=== PATIENT | female | born 1985 | race Caucasian/White ===

== ENCOUNTER 2022-09-01 01:11 | Inpatient (IN) ==
[2022-09-01] MEDS ORDERED: OXYTOCIN 30 UNITS/500 ML BAG IV PRN ×2 (01:27→03:33)
[2022-09-01] MEDS ORDERED: LACTATED RINGER'S 1,000 ML IV PRN (01:27)
[2022-09-01] MEDS ORDERED: LIDOCAINE 1% LOCAL 20 ML VIAL INFIL PRN (01:27)
[2022-09-01] MEDS ORDERED: Patient's HEIGHT &/or WEIGHT Needed SCH (01:30)
[2022-09-01] MEDS ORDERED: PENICILLIN G POTASSIUM 6 MU in DEXTROSE 5% 250 ML IV STA (01:41)
[2022-09-01] MEDS ORDERED: PENICILLIN G POTASSIUM 3 MU in DEXTROSE 5% 100 ML IV PRN (01:42)
--- NOTE | 2022-09-01 01:57 | History & Physical Report ---
Date of Service September 01, 2022 Assessment & Plan (1) : Plan: Admit in labor requesting epidural for pain History of Present Illness Chief Complaint: onset of labor Primary Care Provider: NO PCP 37 F P0000 at 39.5 weeks presents to L&D in active labor. GBS is negative. Covid is negative. 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 Beliefs That Will Affect Care: None marital status: Current Living Situation: Spouse Other Information That Helps Us Care for You: No Feels Safe at Home: Yes Safety Concerns: Feels Safe At This Time OB History primip 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 Review of Systems All systems reviewed & are unremarkable except as noted in HPI & below Physical Exam Constitutional: WD/WN, vitals as above Eyes: PERRL, conjunctivae normal, anicteric sclerae Respiratory: normal respiratory effort, lungs clear to auscultation Cardiovascular: RRR, no murmur, no edema Gastrointestinal (Abdomen): Inspection/Auscultation: abdomen normal to inspection Musculoskeletal: Extremities: extremities normal to inspection Skin: no rashes, warm and dry Neurologic: patellar DTR's 2+ bilat, sensation intact Psychiatric: A+Ox3, euthymic affect Genitourinary: Manual OB Exam: + cervical dilation 7 cm, + cervical effacement 100% and + station 0 OB Exam Monitor Tracing: + external FHT monitor used, + external uterine monitor used, + category I and + normal FHT variability Results & Data Vital Signs (Past 12 Hours) Vital Signs Pulse Resp BP 09/01/22 01:35 18 09/01/22 01:23 81 108/71 Laboratory Results Laboratory Results - last 24 hr 09/01/22 01:30 SARS-CoV-2, RNA, NAAT NEGATIVE Monitoring External Monitor Cat 1
[2022-09-01] MEDS ORDERED: ePHEDrine sulfate 50 MG/ML AMP ONE (01:58)
[2022-09-01] MEDS ORDERED: fentaNYL 2MCG/ML ROPIVACAINE 1.25MG/ML 100 ML BAG EPI ONE (01:59)
[2022-09-01] MEDS ORDERED: BUPIVACAINE 0.25% PF 30 ML VIAL ONE (01:59)
[2022-09-01] MEDS ORDERED: SODIUM CHLORIDE 0.9% PF INJ 10 ML VIAL ONE (01:59)
[2022-09-01] MEDS ORDERED: fentaNYL citrate PF 100 MCG/2 ML VIAL ONE (01:59)
[2022-09-01] MEDS ORDERED: LIDOCAINE 2%/EPINEPHRINE 1:200,000 20 ML PF ONE (01:59)
[2022-09-01 02:02] LABS: Hematocrit (blood only) 36.8 % (37.0-47.0); Mean Corpuscular Hemoglobin 33.3 pg (25.0-34.0); Mean Corpuscular Hgb Conc 35.3 g/dL (32.0-36.0); Mean Corpuscular Volume 94.4 fL (80.0-100.0); Mean Platelet Volume 10.7 fL (9.4-12.4); Platelet Count 259 K/uL (130-400); RDW Standard Deviation 44.6 fL (36.4-46.3); White Blood Count 12.72 K/ul (4.8-10.8)
--- NOTE | 2022-09-01 03:29 | Delivery Summary ---
Vaginal Delivery Summary Date of Service September 01, 2022 Vaginal Delivery Summary Delivery Note live male SHREE over intact perineum with delayed cord clamping and Apgars 8/9 weight pending. Cord blood obtained followed by spontaneous delivery of intact placenta with 3VC. Second degree tear noted. 1% Lidocaine infiltrated locally. Repair done with 3/0 Vicryl suture. EBL 300 ml. Final sponge, needle and instrument count are correct. Mom and baby stable.
[2022-09-01] MEDS ORDERED: DIPHTHERIA/TETANUS/PERTUSSIS Vaccine (Tdap, Age 7+yrs) 0.5mL SYR/VL IM ONE (03:33)
[2022-09-01] MEDS ORDERED: BENZOCAINE 20% AER SPR 82.5 GM CAN EXT PRN (03:33)
[2022-09-01] MEDS ORDERED: ACETAMINOPHEN 325 MG TAB PO PRN (03:33)
[2022-09-01] MEDS ORDERED: bisacodyL 10 MG SUPP PR PRN (03:33)
[2022-09-01] MEDS ORDERED: HYDROCORTISONE ACETATE 25 MG SUPP PR PRN (03:33)
[2022-09-01] MEDS: IBUPROFEN 600 MG TAB PO PRN ×4 (03:55→20:18)
[2022-09-01] MEDS: FERROUS SULFATE 325 MG TAB PO SCH (09:46)
[2022-09-01] MEDS: DOCUSATE SODIUM 100 MG CAP PO SCH ×2 (09:47→20:14)
[2022-09-01] MEDS: PRENATAL VITAMIN 1 TAB PO SCH (09:47)
[2022-09-01] MEDS: Patient's ALLERGY Info needs ENTERED SCH ×2 (20:20→20:21)
[2022-09-02] MEDS: IBUPROFEN 600 MG TAB PO PRN ×4 (03:50→20:20)
[2022-09-02 08:22] LABS: Hematocrit (blood only) 33.1 % (37.0-47.0); Hemoglobin 11.4 g/dl (12.0-16.0); Mean Corpuscular Hemoglobin 32.7 pg (25.0-34.0); Mean Corpuscular Hgb Conc 34.4 g/dL (32.0-36.0); Mean Corpuscular Volume 94.8 fL (80.0-100.0); Platelet Count 241 K/uL (130-400); RDW Standard Deviation 44.5 fL (36.4-46.3); Red Blood Count 3.49 M/uL (4.20-5.40); White Blood Count 12.68 K/ul (4.8-10.8)
[2022-09-02] MEDS: DOCUSATE SODIUM 100 MG CAP PO SCH ×2 (08:31→20:20)
[2022-09-02] MEDS: FERROUS SULFATE 325 MG TAB PO SCH (08:31)
[2022-09-02] MEDS: PRENATAL VITAMIN 1 TAB PO SCH (08:31)
--- NOTE | 2022-09-02 10:44 | Obstetrical Progress Note ---
Date of Service September 02, 2022 Assessment & Plan (1) Normal course: PPD #1 Pt doing well No complaints Subjective Ambulation: ambulating normally Voiding: no voiding problems Passing Gas:: Yes Diet Tolerance:: regular diet Lochia:: Small Feeding Type:: breast feeding Review of Systems All systems reviewed & are unremarkable except as noted in HPI & below Physical Exam Constitutional WD/WN, vitals as above well developed and well nourished Eyes PERRL, conjunctivae normal, anicteric sclerae Neck trachea midline, no thyromegaly Respiratory normal respiratory effort, lungs clear to auscultation Auscultation: no crackles, no rales and no wheezes Cardiovascular RRR, no murmur, no edema Gastrointestinal (Abdomen) normal bowel sounds, soft, nontender, no hepatosplenomegaly Uterus is below umbilicus Musculoskeletal no cyanosis or clubbing, extremities motor strength 5/5 Skin no rashes, warm and dry Neurologic patellar DTR's 2+ bilat, sensation intact Psychiatric A+Ox3, euthymic affect Genitourinary normal external appearance Results & Data Vital Signs (Past 12 Hours) Vital Signs Temp Pulse Resp BP Pulse Ox O2 Del Method 09/02/22 08:30 36.9 C 73 18 111/69 Room Air 09/01/22 23:00 36.8 C 65 16 113/68 97 Room Air
[2022-09-02] MEDS ORDERED: bisacodyL 5 MG TABEC PO SCH (20:00)
[2022-09-03 07:43] LABS: Hematocrit (blood only) 37.7 % (37.0-47.0); Hemoglobin 13.2 g/dl (12.0-16.0)
[2022-09-03] MEDS: DOCUSATE SODIUM 100 MG CAP PO SCH (08:03)
[2022-09-03] MEDS: PRENATAL VITAMIN 1 TAB PO SCH (08:03)
[2022-09-03] MEDS: FERROUS SULFATE 325 MG TAB PO SCH (08:03)
[2022-09-03] MEDS: IBUPROFEN 600 MG TAB PO PRN (08:55)
--- NOTE | 2022-09-03 11:01 | Obstetrical Progress Note ---
Date of Service September 03, 2022 Subjective Ambulation: ambulating normally Voiding: no voiding problems Passing Gas:: Yes Diet Tolerance:: regular diet Lochia:: Small Feeding Type:: breast feeding Current Pain Level(1-10): 0 doing well. no complaints Physical Exam Constitutional WD/WN, vitals as above Gastrointestinal (Abdomen) Inspection/Auscultation: abdomen normal to inspection fundus soft and non-tender. Uterus firm below U Musculoskeletal Extremities: extremities normal to inspection Skin no rashes, warm and dry Neurologic patellar DTR's 2+ bilat, sensation intact Psychiatric A+Ox3, euthymic affect Results & Data Vital Signs (Past 12 Hours) Vital Signs Temp Pulse Pulse Resp BP Pulse Ox O2 Del Method 09/03/22 09:33 37.1 C 73 18 110/66 96 09/03/22 07:50 37.1 C 73 18 110/66 Room Air 09/02/22 23:15 36.7 C 68 16 111/65 96 Room Air Laboratory Results 09/01/22 09/01/22 09/02/22 01:30 01:51 07:46 WBC 12.72 H 12.68 H RBC 3.90 L 3.49 L Hgb 13.0 11.4 L Hct 36.8 L 33.1 L MCV 94.4 94.8 MCH 33.3 32.7 MCHC 35.3 34.4 RDW Std Deviation 44.6 44.5 RDW Coeff of Lucas 13.0 13.0 Plt Count 259 241 MPV 10.7 11.0 SARS-CoV-2, RNA, NAAT NEGATIVE 09/03/22 07:31 WBC RBC Hgb 13.2 Hct 37.7 MCV MCH MCHC RDW Std Deviation RDW Coeff of Lucas Plt Count MPV SARS-CoV-2, RNA, NAAT
== END 2022-09-03 12:40 | disposition home or self-care (01) | DRG 807 ==
LOC: OPB 01:11 → 4S1 01:16 → 4E2 06:28